=== PATIENT | female | born 1950 ===

== ENCOUNTER 2017-03-03 17:36 | Emergency (ER) | payer MEDICARE, OTHER ==
[2017-03-03 17:45] VITALS: BP 158/72; PULSE 75; RESP 18; TEMP 97.9; O2SAT 99; BMI 31.8
[2017-03-03] MEDS ORDERED: Enoxaparin 80 mg Syringe SC STA (17:59)
--- NOTE | 2017-03-03 18:07 | C.PDOC ---
History Of Present Illness 66 y/o F sent to ED by PMD for rule out DVT. Patient denies chest pain or dyspnea. Discussed case with PMD prior to patient arrival, she is in agreement with lovenox and return in AM for doppler. Time Seen by Provider: 03/03/17 17:54 Chief Complaint (Nursing): Medical Clearance Past Medical History Vital Signs: Last Vital Signs Temp 97.9 F 03/03/17 17:45 Pulse 75 03/03/17 17:45 Resp 18 03/03/17 17:45 BP 158/72 H 03/03/17 17:45 Pulse Ox 99 03/03/17 17:45 - Medical History PMH: Anemia, Asthma, Diabetes, HTN, Hypercholesterolemia, TIA (20 yrs ago) Surgical History: Endoscopy - [facility] Procedures CONTR ABD ARTERIOGRM NEC (10/06/13) CONTRAST ARTERIOGRAM-LEG (10/06/13) PERCUTAN NEEDLE BX OF LIVER (09/13/13) PHYSICAL THERAPY NEC (03/23/14) Family History: States: No Known Family Hx - Social History Hx Tobacco Use: No Hx Alcohol Use: No Hx Substance Use: No - Immunization History Hx Tetanus Toxoid Vaccination: No Hx Influenza Vaccination: No Hx Pneumococcal Vaccination: No Review Of Systems Except As Marked, All Systems Reviewed And Found Negative. Cardiovascular: Negative for: Chest Pain Respiratory: Negative for: Shortness of Breath Physical Exam - Physical Exam Appears: No Acute Distress Head: Normacephalic Respiratory: No Accessory Muscle Use Gastrointestinal/Abdominal: Soft Gait: Steady ED Course And Treatment O2 Sat by Pulse Oximetry: 99 Medical Decision Making Medical Decision Making: Lovenox administered. Disposition - Disposition Disposition: HOME/ ROUTINE Disposition Time: 18:06 Condition: STABLE Additional Instructions: Return in the morning for ultrasound to rule out a blood clot. Instructions: Deep Venous Thrombosis (ED) - Clinical Impression Clinical Impression: Right leg pain
[2017-03-03] MEDS ORDERED: Enoxaparin 80 mg Syringe ONE (18:17)
== END 2017-03-03 18:22 | disposition home or self-care (01) ==
LOC: C.ER 17:36
DX: M79.604 Pain in right leg (principal)
CPT/HCPCS: 96372; 99282; J1650

== ENCOUNTER 2017-03-04 07:06 | Emergency (ER) | payer MEDICARE, OTHER ==
[2017-03-04 07:07] VITALS: BMI 31.8
[2017-03-04 07:17] VITALS: RESP 18
--- NOTE | 2017-03-04 07:59 | C.PDOC ---
History Of Present Illness 66 y/o female presents to ED for Vascular study to rule out DVT. Patient was seen at ED yesterday for right leg pain and needed a doppler to rule out DVT but it was too later and was told to return today to ED for study to be done. Patient complaints of pain to right leg and denies numbness, weakness or any other complaints at this time. Time Seen by Provider: 03/04/17 07:25 Chief Complaint (Nursing): Lower Extremity Problem/Injury History Per: Patient History/Exam Limitations: no limitations Onset/Duration Of Symptoms: Days Current Symptoms Are (Timing): Still Present Severity: Mild Recent travel outside of the [place]: No Past Medical History Reviewed: Historical Data, Nursing Documentation, Vital Signs Vital Signs: Last Vital Signs Temp 98.1 F 03/04/17 10:06 Pulse 58 L 03/04/17 10:06 Resp 18 03/04/17 10:06 BP 118/82 03/04/17 10:06 Pulse Ox 97 03/04/17 10:06 - Medical History PMH: Anemia, Asthma, Diabetes, HTN, Hypercholesterolemia, TIA (20 yrs ago) Surgical History: Endoscopy - [facility] Procedures CONTR ABD ARTERIOGRM NEC (10/06/13) CONTRAST ARTERIOGRAM-LEG (10/06/13) PERCUTAN NEEDLE BX OF LIVER (09/13/13) PHYSICAL THERAPY NEC (03/23/14) Family History: States: No Known Family Hx - Social History Hx Tobacco Use: No Hx Alcohol Use: No Hx Substance Use: No - Immunization History Hx Tetanus Toxoid Vaccination: No Hx Influenza Vaccination: No Hx Pneumococcal Vaccination: No Review Of Systems Constitutional: Negative for: Fever, Chills Musculoskeletal: Positive for: Leg Pain Skin: Negative for: Rash, Bruising Neurological: Negative for: Weakness, Numbness Physical Exam - Physical Exam Appears: Non-toxic, No Acute Distress Skin: Normal Color, Warm, Dry, No Rash Head: Atraumatic, Normacephalic Oral Mucosa: Moist Neck: Normal ROM, Supple Chest: Symmetrical Extremity: No Tenderness, No Pedal Edema, Capillary Refill (<2 seconds), No Deformity, No Swelling Extremity: Bilateral: Normal ROM Pulses: Left Dorsalis Pedis: Normal, Right Dorsalis Pedis: Normal Neurological/Psych: Oriented x3, Normal Motor, Normal Sensation ED Course And Treatment O2 Sat by Pulse Oximetry: 98 (RA) Pulse Ox Interpretation: Normal Progress Note: Doppler bilateral LE (-) DVT. discharged in stable condition Reassessment Condition: Unchanged Medical Decision Making Medical Decision Making: Plan: Doppler ordered Disposition Counseled Patient/Family Regarding: Studies Performed, Diagnosis, Need For Followup - Disposition Referrals: Lucia Bolivar MD [Non-Staff] - Disposition: HOME/ ROUTINE Disposition Time: 10:00 Condition: STABLE Additional Instructions: Follow up with PMD for further evaluation return to ED if any increase symptoms Instructions: Leg Pain (ED) Forms: [employer] (Bermudian) Print Language: ICELANDIC - POA Present On Arrival: None - Clinical Impression Clinical Impression: Muscle strain, Leg pain, Right leg pain - PA / COMMERCIAL RELATIONSHIP MANAGER / Resident Statement MD/DO has reviewed & agrees with the documentation as recorded. - Scribe Statement The provider has reviewed the documentation as recorded by the Scribrosario Ramirez All medical record entries made by the Rikiibrosario were at my direction and personally dictated by me. I have reviewed the chart and agree that the record accurately reflects my personal performance of the history, physical exam, medical decision making, and the department course for this patient. I have also personally directed, reviewed, and agree with the discharge instructions and disposition.
[2017-03-04 10:07] VITALS: BP 118/82; PULSE 58; TEMP 98.1
--- NOTE | 2017-03-04 13:33 | VASCLAB ---
PROCEDURE: Lower Extremity Venous Duplex Exam. HISTORY: pain PRIORS: None. TECHNIQUE: Bilateral common femoral, femoral, popliteal and posterior tibial, peroneal and great saphenous veins were evaluated. Flow was assessed with color Doppler, compressibility, assessment of phasic flow and augmentation response. Report prepared by ALEXIS Thorpe, RVT FINDINGS: RIGHT: 1. Common Femoral Vein: 1.1. Compressibility - Fully compressible: Thrombus - None : Flow - Phasic: Augmentation -Normal: Reflux - None. 2. Femoral Vein: 2.1. Compressibility - Fully compressible: Thrombus - None : Flow - Phasic: Augmentation -Normal: Reflux - None. 3. Popliteal Vein: 3.1. Compressibility - Fully compressible: Thrombus - None : Flow - Phasic: Augmentation -Normal: Reflux - None. 4. Posterior Tibial Vein: 4.1. Compressibility - Fully compressible: Thrombus - None: Flow - Phasic: Augmentation -Normal: Reflux - None. 5. Peroneal Vein: 5.1. Compressibility - Fully compressible: Thrombus - None: Flow - Phasic: Augmentation -Normal: Reflux - None. 6. Great Saphenous Vein: 6.1. Compressibility - Fully compressible: Thrombus - None: Flow - Phasic: Augmentation - Normal: Reflux - None. LEFT: 1. Common Femoral Vein: 1.1. Compressibility - Fully compressible: Thrombus - None: Flow - Phasic: Augmentation -Normal: Reflux - None. 2. Femoral Vein: 2.1. Compressibility - Fully compressible: Thrombus - None: Flow - Phasic: Augmentation -Normal: Reflux - None. 3. Popliteal Vein: 3.1. Compressibility - Fully compressible: Thrombus - None : Flow - Phasic: Augmentation -Normal: Reflux - None. 4. Posterior Tibial Vein: 4.1. Compressibility - Fully compressible: Thrombus - None: Flow - Phasic: Augmentation -Normal: Reflux - None. 5. Peroneal Vein: 5.1. Compressibility - Fully compressible: Thrombus - None: Flow - Phasic: Augmentation -Normal: Reflux - None. 6. Great Saphenous Vein: 6.1. Compressibility - Fully compressible: Thrombus - None: Flow - Phasic: Augmentation - Normal: Reflux - None. OTHER FINDINGS: Right: None significant. Left: None significant. IMPRESSION: Right: No evidence of deep or superficial vein thrombosis of the right lower extremity. Normal valve function noted of the right side. Left: No evidence of deep or superficial vein thrombosis of the left lower extremity. Normal valve function noted of the left side.
[2017-03-04 18:23] VITALS: O2SAT 98
== END 2017-03-04 10:45 | disposition home or self-care (01) ==
LOC: C.ER 07:06
DX: S86.911A Strain of unspecified muscle(s) and tendon(s) at lower leg level, right leg, initial encounter (principal); X58.XXXA Exposure to other specified factors, initial encounter

== ENCOUNTER 2018-07-08 11:36 | Emergency (ER) | payer OTHER ==
[2018-07-08 11:44] VITALS: TEMP 98; O2SAT 96
[2018-07-08 11:45] VITALS: BMI 32.7
[2018-07-08 12:26] LABS: BASO % 0.5 % (0.0-2.0); EOS # 0.1 K/uL (0.0-0.7); EOS % 1.2 % (0.0-4.0); HEMOGLOBIN 15.3 g/dL (11.0-16.0); LYMPH # 1.7 K/uL (1.0-4.3); LYMPH % 40.4 % (20.0-40.0); MEAN CORPUSCULAR HEMOGLOBIN 30.3 pg (27.0-31.0); MEAN CORPUSCULAR HGB CONC 32.4 g/dL (33.0-37.0); MEAN PLATELET VOLUME 11.9 fL (7.2-11.7); MONO # 0.3 K/uL (0.0-0.8); MONO % 6.9 % (0.0-10.0); NEUT # 2.1 K/uL (1.8-7.0); NRBC % 0.1 % (0.0-2.0); RBC 5.06 Mil/uL (3.80-5.20); RED CELL DISTRIBUTION WIDTH 13.7 % (11.5-14.5); WHITE BLOOD COUNT 4.1 K/uL (4.8-10.8)
[2018-07-08 12:27] LABS: MEAN CELL VOLUME 93.4 fL (81.0-99.0)
[2018-07-08 12:34] LABS: ALB/GLOB RATIO 1.3 (1.0-2.1); ALBUMIN 4.9 g/dL (3.5-5.0); ALT/SGPT 24 U/L (9-52); AST/SGOT 47 U/L (14-36); BLOOD UREA NITROGEN 14 mg/dL (7-17); CALCIUM 9.4 mg/dl (8.6-10.4); GFR NON-AFRICAN AMERICAN > 60
--- NOTE | 2018-07-08 12:37 | RAD ---
Chest x-ray single frontal view HISTORY: Tremor. COMPARISON: None. Findings: Bibasilar breast and nipple shadows. Mild patchy increased markings/nodularity at the left lung base. Clincal correlation. Mild venous congestion. Right hilar prominence. Upper lobe granulomatous changes. Atherosclerotic calcification at the aortic knob. Tortuous aorta. Degenerative changes in the spine and shoulders. Impression: Bibasilar breast and nipple shadows. Mild patchy increased markings/nodularity at the left lung base. Clincal correlation. Mild venous congestion. Right hilar prominence. Upper lobe granulomatous changes. Atherosclerotic calcification at the aortic knob. Tortuous aorta.
--- NOTE | 2018-07-08 13:51 | RAD ---
Date of service: 07/08/2018 PROCEDURE: Cervical Spine Radiographs. HISTORY: Pain. COMPARISON: None available. FINDINGS: The study is slightly limited due to partial obscuration of the tip of the odontoid by overlying occiput in the open-mouth projection BONES: No acute compression fractures no retropulsed fragments. Vertebral bodies exhibit relatively normal stature. There is straightening of the normal cervical lordosis which may in part be due to patient positioning however underlying element of muscle spasm may contribute. DISC SPACES: Mild multilevel disc space narrowing more so along the posterior disc margins with minor endplate eburnation and small anterior as well as posterior osteophyte formation former slightly larger than latter. Moderate multilevel facet arthropathy. Mild multilevel hypertrophic uncovertebral joint changes. SOFT TISSUES: Normal. No prevertebral soft tissue swelling. OTHER FINDINGS: None. IMPRESSION: The slightly limited study as described no acute fractures. Multilevel degenerative spondylosis.
--- NOTE | 2018-07-08 14:17 | C.PDOC ---
Time Seen by Provider: 07/08/18 11:50 Chief Complaint (Nursing): Weakness/Neurological Deficit Past Medical History Vital Signs: Last Vital Signs Temp 98 F 07/08/18 11:43 Pulse 72 07/08/18 11:43 Resp 14 07/08/18 11:43 BP 149/88 07/08/18 11:43 Pulse Ox 96 07/08/18 11:43 - Medical History PMH: Anemia, Asthma, Diabetes, HTN, Hypercholesterolemia, TIA (20 yrs ago) Surgical History: Endoscopy - [facility] Procedures CONTR ABD ARTERIOGRM NEC (10/06/13) CONTRAST ARTERIOGRAM-LEG (10/06/13) PERCUTAN NEEDLE BX OF LIVER (09/13/13) PHYSICAL THERAPY NEC (03/23/14) - Social History Hx Tobacco Use: No Hx Alcohol Use: No Hx Substance Use: No - Immunization History Hx Tetanus Toxoid Vaccination: No Hx Influenza Vaccination: No Hx Pneumococcal Vaccination: No ED Course And Treatment - Laboratory Results Result Diagrams: 07/08/18 12:12 07/08/18 12:12 Lab Results: Total Bilirubin 0.5 mg/dL (0.2-1.3) 07/08/18 12:12 AST 47 U/L (14-36) H 07/08/18 12:12 ALT 24 U/L (9-52) 07/08/18 12:12 Alkaline Phosphatase 80 U/L (38-126) 07/08/18 12:12 Total Protein 8.7 g/dL (6.3-8.3) H 07/08/18 12:12 Albumin 4.9 g/dL (3.5-5.0) 07/08/18 12:12 Globulin 3.8 gm/dL (2.2-3.9) 07/08/18 12:12 Albumin/Globulin Ratio 1.3 (1.0-2.1) 07/08/18 12:12 O2 Sat by Pulse Oximetry: 96 Medical Decision Making Medical Decision Making: CXR Results Chest x-ray single frontal view HISTORY: Tremor. COMPARISON: None. Findings: Bibasilar breast and nipple shadows. Mild patchy increased markings/nodularity at the left lung base. Clincal correlation. Mild venous congestion. Right hilar prominence. Upper lobe granulomatous changes. Atherosclerotic calcification at the aortic knob. Tortuous aorta. Degenerative changes in the spine and shoulders. Impression: Bibasilar breast and nipple shadows. Mild patchy increased markings/nodularity at the left lung base. Clincal correlation. Mild venous congestion. Right hilar prominence. Upper lobe granulomatous changes. Atherosclerotic calcification at the aortic knob. Tortuous aorta. [id number] Spine Results Date of service: 07/08/2018 PROCEDURE: Cervical Spine Radiographs. HISTORY: Pain. COMPARISON: None available. FINDINGS: The study is slightly limited due to partial obscuration of the tip of the odont oid by overlying occiput in the open-mouth projection BONES: No acute compression fractures no retropulsed fragments. Vertebral bodies exhibit relatively normal stature. There is straightening of the normal cervical lordosis which may in part be due to patient positioning however underlying element of muscle spasm may contribute. DISC SPACES: Mild multilevel disc space narrowing more so along the posterior disc margins with minor endplate eburnation and small anterior as well as posterior osteophyte formation former slightly larger than latter. Moderate multilevel facet arthropathy. Mild multilevel hypertrophic uncovertebral joint changes. SOFT TISSUES: Normal. No prevertebral soft tissue swelling. OTHER FINDINGS: None. IMPRESSION: The slightly limited study as described no acute fractures. Multilevel degenerative spondylosis. Disposition - Disposition Forms: [employer] (Hungarian)
--- NOTE | 2018-07-08 14:20 | C.PDOC ---
History Of Present Illness 68 y/o F p/w L sided arm paresthesias that also go into the L sided face. She reports concomitant neck pain with this as well but denies any injury. Denies motor weakness, facial droop, slurred speech, problems with coordination. Time Seen by Provider: 07/08/18 11:50 Chief Complaint (Nursing): Weakness/Neurological Deficit Past Medical History Vital Signs: Last Vital Signs Temp 98 F 07/08/18 11:43 Pulse 72 07/08/18 11:43 Resp 14 07/08/18 11:43 BP 149/88 07/08/18 11:43 Pulse Ox 96 07/08/18 11:43 - Medical History PMH: Anemia, Asthma, Diabetes, HTN, Hypercholesterolemia, TIA (20 yrs ago) Surgical History: Endoscopy - [facility] Procedures CONTR ABD ARTERIOGRM NEC (10/06/13) CONTRAST ARTERIOGRAM-LEG (10/06/13) PERCUTAN NEEDLE BX OF LIVER (09/13/13) PHYSICAL THERAPY NEC (03/23/14) Family History: States: No Known Family Hx - Social History Hx Tobacco Use: No Hx Alcohol Use: No Hx Substance Use: No - Immunization History Hx Tetanus Toxoid Vaccination: No Hx Influenza Vaccination: No Hx Pneumococcal Vaccination: No Review Of Systems Except As Marked, All Systems Reviewed And Found Negative. Constitutional: Negative for: Fever Cardiovascular: Negative for: Chest Pain Physical Exam - Physical Exam Additional Physical Exam Comments: Gen: NAD Head: NC/AT Eyes: PERRL, EOMI ENT: MMM Neck: Supple Chest: No tenderness CV: Regular rate Lungs: CTA b/l Abd: Soft, NT Back: No midline tenderness Extremities: FROM x 4, no tenderness Skin: No rash Neuro: Alert, oriented x 3. No facial droop. Motor 5/5 x 4. Sensation intact in L arm and L face, feels like "pins and needles." ED Course And Treatment - Laboratory Results Result Diagrams: 07/08/18 12:12 07/08/18 12:12 Lab Results: Total Bilirubin 0.5 mg/dL (0.2-1.3) 07/08/18 12:12 AST 47 U/L (14-36) H 07/08/18 12:12 ALT 24 U/L (9-52) 07/08/18 12:12 Alkaline Phosphatase 80 U/L (38-126) 07/08/18 12:12 Total Protein 8.7 g/dL (6.3-8.3) H 07/08/18 12:12 Albumin 4.9 g/dL (3.5-5.0) 07/08/18 12:12 Globulin 3.8 gm/dL (2.2-3.9) 07/08/18 12:12 Albumin/Globulin Ratio 1.3 (1.0-2.1) 07/08/18 12:12 O2 Sat by Pulse Oximetry: 96 Medical Decision Making Medical Decision Making: FINDINGS: The study is slightly limited due to partial obscuration of the tip of the odontoid by overlying occiput in the open-mouth projection BONES: No acute compression fractures no retropulsed fragments. Vertebral bodies exhibit relatively normal stature. There is straightening of the normal cervical lordosis which may in part be due to patient positioning however underlying element of muscle spasm may contribute. DISC SPACES: Mild multilevel disc space narrowing more so along the posterior disc margins with minor endplate eburnation and small anterior as well as posterior osteophyte formation former slightly larger than latter. Moderate multilevel facet arthropathy. Mild multilevel hypertrophic uncovertebral joint changes. SOFT TISSUES: Normal. No prevertebral soft tissue swelling. OTHER FINDINGS: None. IMPRESSION: The slightly limited study as described no acute fractures. Multilevel degenerative spondylosis. Signs and symptoms consistent with cervical radiculopathy. Discharged home, f/u PMD, return to ED for worsening pain, fever, vomiting, motor weakness, facial droop, dysarthria or any other problem. Disposition - Disposition Disposition: HOME/ ROUTINE Disposition Time: 14:27 Condition: STABLE Prescriptions: Ibuprofen [Motrin] 1 tab PO Q6 #30 tab Instructions: Radiculopathy - Clinical Impression Clinical Impression: Cervical radiculopathy
[2018-07-08 14:47] VITALS: BP 114/76; PULSE 60; RESP 17
--- NOTE | 2018-07-09 16:53 | CARD ---
APPROVED REPORT Date of service: 07/08/2018 EKG Measurement Heart [id number] <Conclusion> Sinus rhythm with occasional premature ventricular complexes Possible Left atrial enlargement Left ventricular hypertrophy Nonspecific ST and T wave abnormality Abnormal ECG
== END 2018-07-08 15:06 | disposition home or self-care (01) ==
LOC: C.ER 11:36
DX: M54.12 Radiculopathy, cervical region (principal)

== ENCOUNTER 2018-08-26 13:31 | Emergency (ER) | payer OTHER ==
[2018-08-26 13:31] VITALS: BMI 32.7
[2018-08-26 13:47] VITALS: BP 117/79; PULSE 69; RESP 18; TEMP 98; O2SAT 100
[2018-08-26] MEDS ORDERED: Bacitracin 500 Units/gm Oint Foilpak UD TOP ONE (14:11)
[2018-08-26] MEDS ORDERED: Bacitracin 500 Units/gm Oint Foilpak UD ONE (14:33)
--- NOTE | 2018-08-26 15:35 | RAD ---
PROCEDURE: Radiographs of the Left Shoulder HISTORY: LEFT SHOULDER PAIN AFTER FALL COMPARISON: Bilateral shoulder radiographs performed 01/12/17 FINDINGS: BONES: No acute displaced fracture. The distal clavicle and underlying ribs appear intact. JOINTS: No acute dislocation. SOFT TISSUES: Soft tissues appear unremarkable. No evidence of radiopaque foreign body. Markedly ectatic aorta containing dense atherosclerotic calcifications. IMPRESSION: No acute displaced fracture or dislocation evident. If symptoms persist or if there is continued clinical concern, x-ray follow-up in 7-10 days should be considered.
--- NOTE | 2018-08-26 15:41 | C.PDOC ---
History Of Present Illness 68 y/o female presents to the ER complaining of left shoulder pain, left chest pain, and left knee pain s/p slip and fall. Patient states that she fell on the sidewalk. Patient denies having head injury,LOC, SOB, dizziness, palpitation, nausea, vomiting, and abdominal pain. - HPI Time Seen by Provider: 08/26/18 13:49 Chief Complaint (Nursing): Trauma History Per: Patient History/Exam Limitations: no limitations Onset/Duration Of Symptoms: Hrs Severity: Moderate Past Medical History Reviewed: Historical Data, Nursing Documentation, Vital Signs Vital Signs: Last Vital Signs Temp 98 F 08/26/18 13:45 Pulse 69 08/26/18 13:45 Resp 18 08/26/18 13:45 BP 117/79 08/26/18 13:45 Pulse Ox 100 08/26/18 13:45 - Medical History PMH: Anemia, Asthma, Diabetes, HTN, Hypercholesterolemia, TIA (20 yrs ago) Surgical History: Endoscopy - [facility] Procedures CONTR ABD ARTERIOGRM NEC (10/06/13) CONTRAST ARTERIOGRAM-LEG (10/06/13) PERCUTAN NEEDLE BX OF LIVER (09/13/13) PHYSICAL THERAPY NEC (03/23/14) Family History: States: No Known Family Hx - Social History Hx Tobacco Use: No Hx Alcohol Use: No Hx Substance Use: No - Immunization History Hx Tetanus Toxoid Vaccination: No Hx Influenza Vaccination: No Hx Pneumococcal Vaccination: No Review Of Systems Except As Marked, All Systems Reviewed And Found Negative. Cardiovascular: Positive for: Chest Pain Respiratory: Negative for: Shortness of Breath Gastrointestinal: Negative for: Nausea, Vomiting Musculoskeletal: Positive for: Shoulder Pain (left shoulder pain), Other (left knee pain) Physical Exam - Physical Exam Appears: Non-toxic, No Acute Distress Skin: Normal Color, Warm, Dry, Other (abrasion to left knee) Head: Atraumatic, Normacephalic Eye(s): bilateral: Normal Inspection Nose: Normal Oral Mucosa: Moist Neck: Normal ROM, Supple Chest: Symmetrical, Tenderness (tenderness to palpation along left lateral ribs), No Ecchymosis Cardiovascular: Rhythm Regular Respiratory: Normal Breath Sounds, No Rales, No Rhonchi, No Wheezing Gastrointestinal/Abdominal: Normal Exam, Soft, No Tenderness, No Guarding, No Rebound Extremity: Normal ROM, Tenderness (tenderness to palpation over left anterior shoulder and left knee), No Deformity (left shoulder,left knee), No Swelling (left shoulder, left knee) Neurological/Psych: Oriented x3, Normal Speech, Normal Motor, Normal Sensation ED Course And Treatment O2 Sat by Pulse Oximetry: 100 (RA) Pulse Ox Interpretation: Normal - Other Rad X-Ray-Ribs w/Chest X-Ray: Viewed By Me, Read By Radiologist Interpretation: Date of service: 08/26/2018. PROCEDURE: Radiographs of the Chest and Left Ribs. HISTORY: LEFT CHEST/RIB PAIN AFTER FALL. COMPARISON: 07/08/2018. TECHNIQUE: Frontal radiograph of the chest and multiple oblique radiographs of the left ribs were obtained. 4 views obtained. FINDINGS: LEFT RIBS: No fracture or focal lesion visualized. LUNGS: Clear. PLEURA: No pneumothorax. Possible trace left inferolateral pleural thickening. CARDIOVASCULAR: Top-normal heart size. No pulmonary vascular congestion. There is presence of aortic atherosclerotic calcification on x-ray. OTHER FINDINGS: None. IMPRESSION: No left rib fracture. Top-normal heart size. Atherosclerotic vascular disease. No pneumothorax. Other findings as above. X-Ray-Left Shoulder X-Ray: Viewed By Me, Read By Radiologist Interpretation: PROCEDURE: Radiographs of the Left Shoulder. HISTORY: LEFT SHOULDER PAIN AFTER FALL. COMPARISON: Bilateral shoulder radiographs performed 01/12/17. FINDINGS: BONES: No acute displaced fracture. The distal clavicle and underlying ribs appear intact. JOINTS: No acute dislocation. SOFT TISSUES: Soft tissues appear unremarkable. No evidence of radiopaque foreign body. Markedly ectatic aorta containing dense atherosclerotic calcifications. IMPRESSION: No acute displaced fracture or dislocation evident. If symptoms persist or if there is continued clinical concern, x-ray follow-up in 7-10 days should be considered. X-Ray-Left Knee X-Ray: Viewed By Me Interpretation: Date of service: 08/26/2018. PROCEDURE: Left Knee Radiographs. HISTORY: Pain. COMPARISON: None. TECHNIQUE: 3 views obtained. FINDINGS: BONES: There is periarticular bone demineralization. There is no acute displaced fracture or bone destruction. Bone alignment is normal. JOINTS: There is mild tricompartmental degenerative osteoarthrosis with reduced joint spaces, marginal osteophytes and tibial spiking, worse in the medial compartment. JOINT EFFUSION: There is a small suprapatellar joint effusion. OTHER FINDINGS: None. IMPRESSION: No acute fracture or dislocation. Mild tricompartmental degenerative osteoarthrosis, worse in the medial compartment. Small suprapatellar joint effusion. Progress Note: X-Ray-Ribs w/Chest, X-Ray-Left Shoulder, and X-Ray-Left Knee ordered and reviewed.Patient treated with Tylenol PO. Bacitracin has been applied to left knee. Patient has been discharged and instructed to follow up with orthopedics in 1 week. Disposition Counseled Patient/Family Regarding: Studies Performed, Diagnosis, Need For Followup, Rx Given - Disposition Referrals: Guy Galeas MD [Staff Provider] - Saba Grewal MD [Non-Staff] - Disposition: HOME/ ROUTINE Disposition Time: 15:40 Condition: STABLE Additional Instructions: FOLLOW UP WITH ORTHOPEDICS WITHIN 1 WEEK USE MEDICATIONS DIRECTED RETURN TO EMERGENCY ROOM IF YOUR SYMPTOMS BECOME WORSE SEGUIR CON ORTOPEDIA EN DEION SEMANA UTILICE MEDICAMENTOS CHERELLE SE DIRIGE VUELVA A LA JEREMY DE EMERGENCIA SI GRAHAM SNTOMAS SE HACEN [place] Prescriptions: Cyclobenzaprine [Flexeril] 10 mg PO BID PRN #15 tab PRN Reason: Muscle Spasm Naproxen 375 mg PO BID PRN #20 tablet PRN Reason: pain Instructions: Knee Sprain (DC), Shoulder Sprain (DC), Bruised Rib (DC) Forms: [employer] (Tanzanian) Print Language: CONGOLESE - POA Present On Arrival: Falls Or Trauma - Clinical Impression Clinical Impression: Sprain of left shoulder, Sprain of left knee, Contusion of left chest wall - Scribe Statement The provider has reviewed the documentation as recorded by the Alessandra Boykin Provider Attestation: All medical record entries made by the Alessandra were at my direction and personally dictated by me. I have reviewed the chart and agree that the record accurately reflects my personal performance of the history, physical exam, m edical decision making, and the department course for this patient. I have also personally directed, reviewed, and agree with the discharge instructions and disposition.
--- NOTE | 2018-08-26 15:57 | RAD ---
Date of service: 08/26/2018 PROCEDURE: Left Knee Radiographs. HISTORY: Pain. COMPARISON: None. TECHNIQUE: 3 views obtained. FINDINGS: BONES: There is periarticular bone demineralization. There is no acute displaced fracture or bone destruction. Bone alignment is normal. JOINTS: There is mild tricompartmental degenerative osteoarthrosis with reduced joint spaces, marginal osteophytes and tibial spiking, worse in the medial compartment. JOINT EFFUSION: There is a small suprapatellar joint effusion. OTHER FINDINGS: None. IMPRESSION: No acute fracture or dislocation. Mild tricompartmental degenerative osteoarthrosis, worse in the medial compartment. Small suprapatellar joint effusion.
--- NOTE | 2018-08-26 16:05 | RAD ---
Date of service: 08/26/2018 PROCEDURE: Radiographs of the Chest and Left Ribs. HISTORY: LEFT CHEST/RIB PAIN AFTER FALL COMPARISON: 07/08/2018. TECHNIQUE: Frontal radiograph of the chest and multiple oblique radiographs of the left ribs were obtained. 4 views obtained. FINDINGS: LEFT RIBS: No fracture or focal lesion visualized. LUNGS: Clear. PLEURA: No pneumothorax Possible trace left inferolateral pleural thickening CARDIOVASCULAR: Top-normal heart size. No pulmonary vascular congestion. There is presence of aortic atherosclerotic calcification on x-ray. OTHER FINDINGS: None. IMPRESSION: No left rib fracture. Top-normal heart size. Atherosclerotic vascular disease. No pneumothorax. Other findings as above.
== END 2018-08-26 15:59 | disposition home or self-care (01) ==
LOC: C.ER 13:31
DX: S43.402A Unspecified sprain of left shoulder joint, initial encounter (principal); S83.92XA Sprain of unspecified site of left knee, initial encounter; S20.212A Contusion of left front wall of thorax, initial encounter; W01.0XXA Fall on same level from slipping, tripping and stumbling without subsequent striking against object, initial encounter; Y92.480 Sidewalk as the place of occurrence of the external cause; E11.9 Type 2 diabetes mellitus without complications; E78.00 Pure hypercholesterolemia, unspecified; I10 Essential (primary) hypertension; Z86.73 Personal history of transient ischemic attack (TIA), and cerebral infarction without residual deficits